=== PATIENT | female | born 1940 | race Two or more races ===

== ENCOUNTER 2022-12-13 21:53 | Emergency (ER) | payer OTHER ==
[~2022-12-13] VITALS: Ht 165.1 cm; Wt 59.0 kg
[2022-12-14] MEDS ORDERED: INTESTINEX680 M1 PO (02:12)
[2022-12-14] MEDS ORDERED: PEPCID40 MG PO (02:12)
[2022-12-14] MEDS ORDERED: ONDANSETRON ODT4 MG PO (02:12)
== END 2022-12-14 02:31 ==
LOC: ER 21:53
DX: K52.9 Noninfective gastroenteritis and colitis, unspecified (principal)